=== PATIENT | female | born 1975 | race Caucasian/White ===

== ENCOUNTER 2021-11-23 13:05 | Emergency (ER) | payer BC, SELFPAY ==
[2021-11-23 13:08] VITALS: BP 153/93; PULSE 107; RESP 20; TEMP 37.2; O2SAT 100
--- NOTE | 2021-11-23 13:22 | ED.FEMALEGU ---
HPI - Female Genitourinary General Chief complaint: Urogenital-Female Stated complaint: Urinary Problem Time Seen by Provider: 11/23/21 13:22 Source: patient, RN notes reviewed and old records reviewed Mode of arrival: ambulatory Limitations: no limitations History of Present Illness HPI Narrative: 46-year-old female who presents to [facility] care with complaints of urinary frequency. urgency and pelvic pressure radiating to right lower back since the 20 of November. Patient states that she saw a urologist for her frequent UTI and was last treated with Augmentin for e-coli in her urine about 1 1/2 months ago. Patient states some slight itching in perineal area denies any vaginal drainage or any concern for exposure to STD's. Patient reports that she had recent abdominal CT scan and she has been referred to her [facility] also for follow up. MD elicited complaint: dysuria Related Data Home Medications Medication Instructions Recorded Confirmed Bacillus coagulans [Probiotic (B. 1 tablet PO .qd 05/22/19 11/23/21 coagulans)] amitriptyline 25 mg tablet 25 mg PO ONCE 05/22/19 11/23/21 beclomethasone dipropionate 40 2 inhalation INHALATION Q12H 05/22/19 11/23/21 mcg/actuation HFA breath activated aerosol cetirizine 10 mg tablet 10 mg PO DAILY 05/22/19 11/23/21 cholecalciferol (vitamin D3) 10 400 unit PO DAILY 05/22/19 11/23/21 mcg (400 unit) capsule fluticasone propionate 50 2 spray NASAL DAILY 05/22/19 11/23/21 mcg/actuation nasal spray,suspension multivitamin 1 tablet PO DAILY 05/22/19 11/23/21 omega-3 fatty acids 1,000 mg 1,000 mg PO DAILY 05/22/19 11/23/21 capsule amlodipine 5 mg PO DAILY 11/23/21 11/23/21 famotidine 10 mg PO DAILY 11/23/21 11/23/21 norethindrone acetate 5 mg PO DAILY 11/23/21 11/23/21 pantoprazole 40 mg PO DAILY 11/23/21 11/23/21 Allergies Allergy/AdvReac Type Severity Reaction Status Date / Time erythromycin base Allergy Unknown Diarrhea Verified 01/29/21 10:05 NSAIDS (Non-Steroidal AdvReac Gastrointestinal Verified 11/23/21 13:22 Anti-Inflamma Upset Review of Systems Review of Systems: CONSTITUTIONAL: Denies fever, chills, or sweats. EYES: Denies visual changes, redness, or discharge. ENT: Denies rhinorrhea, congestion, sore throat, or otalgia. CARDIOVASCULAR: Denies chest pain, palpitations, or edema. RESPIRATORY: Denies cough or dyspnea. GASTROINTESTINAL: Positive for midright abdominal discomfort radiating to right back,pelvic pressure, no nausea, vomiting, or diarrhea. GENITOURINARY: Positive for dysuria or hematuria. SKIN: Denies rash or itching. MUSCULOSKELETAL: right sided lower back pain,no joint pain, or myalgia. NEUROLOGIC: Denies headache, numbness, or weakness. PSYCHIATRIC: Denies anxiety or depression. All systems reviewed & are unremarkable except as noted in HPI and below PMFSH Past Medical History Medical History Arthritis Asthma Degenerative joint disease of thoracic spine Fibromyalgia GERD (gastroesophageal reflux disease) IBS (irritable bowel syndrome) Inflammatory arthritis Surgical History Surgical History H/O tubal ligation History of cholecystectomy Family History Family History Mother Diabetes mellitus Heart disease Father Asthma Emphysema of lung Grandparent Diabetes mellitus Heart disease Throat cancer Sibling Fibromyalgia Diabetes mellitus Multiple sclerosis Social History Social History Smoking status: Never smoker Alcohol intake: never Comments At time of signature, agree with nursing past medical, surgical, social and family history. There is no relevant family history pertinent to the presenting complaint Exam Narrative: GENERAL: Well-appearing, well-nourished, and in no acute distress. HEAD: Normoc
== END 2021-11-23 13:50 | disposition home or self-care (01) ==
PROVIDERS: Emergency Provider Registered Nurse
DX: N39.0 Urinary tract infection, site not specified (principal); M19.90 Unspecified osteoarthritis, unspecified site; J45.909 Unspecified asthma, uncomplicated; M79.7 Fibromyalgia; K21.9 Gastro-esophageal reflux disease without esophagitis; M06.9 Rheumatoid arthritis, unspecified
CPT/HCPCS: 81003; 87077; 87086; 87186; 99213; G0463

== ENCOUNTER 2022-02-06 16:48 | Emergency (ER) | payer BC, SELFPAY ==
[2022-02-06 16:54] VITALS: BP 158/92; PULSE 111; RESP 18; TEMP 36.9; O2SAT 100
--- NOTE | 2022-02-06 17:00 | ED.URI ---
HPI - URI/Sore Throat General Chief Complaint: Upper Respiratory Infection Stated Complaint: Sinus Pain Time Seen by Provider: 02/06/22 17:26 Source: patient and RN notes reviewed Mode of arrival: ambulatory Limitations: no limitations History of Present Illness HPI Narrative: 46-year-old female presents concern for 1 week history of sinus pain, pressure, headache. She also reports left ear pain, nausea. Reports she has been taking her typical allergy medications without relief. She denies fever, body aches, chills, sweats. She reports she had a negative COVID test 2 days ago MD elicited complaint: nasal congestion and sinus pain Related Data Home Medications Medication Instructions Recorded Confirmed Bacillus coagulans [Probiotic (B. 1 tablet PO .qd 05/22/19 02/06/22 coagulans)] amitriptyline 25 mg tablet 25 mg PO ONCE 05/22/19 02/06/22 beclomethasone dipropionate 40 2 inhalation inhalation Q12H 05/22/19 02/06/22 mcg/actuation HFA breath activated aerosol (Qvar RediHaler) cetirizine 10 mg tablet (Zyrtec) 10 mg PO DAILY 05/22/19 02/06/22 cholecalciferol (vitamin D3) 10 400 unit PO DAILY 05/22/19 02/06/22 mcg (400 unit) capsule fluticasone propionate 50 2 spray intranasal DAILY 05/22/19 02/06/22 mcg/actuation nasal spray,suspension multivitamin 1 tablet PO DAILY 05/22/19 02/06/22 omega-3 fatty acids 1,000 mg 1,000 mg PO DAILY 05/22/19 02/06/22 capsule (Fish Oil Concentrate) amlodipine 5 mg tablet 5 mg PO DAILY 11/23/21 02/06/22 famotidine 10 mg tablet 10 mg PO DAILY 11/23/21 02/06/22 norethindrone acetate 5 mg tablet 5 mg PO DAILY 11/23/21 02/06/22 pantoprazole 40 mg tablet,delayed 40 mg PO DAILY 11/23/21 02/06/22 release Allergies Allergy/AdvReac Type Severity Reaction Status Date / Time erythromycin base Allergy Unknown Diarrhea Verified 01/29/21 10:05 NSAIDS (Non-Steroidal AdvReac Gastrointestinal Verified 11/23/21 13:22 Anti-Inflamma Upset Review of Systems Review of Systems: CONSTITUTIONAL: Denies malaise, chills, sweats, or fever. EYES: Denies visual changes, redness, or discharge. ENT: Reports rhinorrhea, congestion, sinus pain, otalgia. Denies sore throat. CARDIOVASCULAR: Denies chest pain, palpitations, or edema. RESPIRATORY: Denies cough. Denies dyspnea. GASTROINTESTINAL: Denies abdominal pain, vomiting, diarrhea. Reports nausea SKIN: Denies rash or itching. MUSCULOSKELETAL: Denies myalgia. NEUROLOGIC: Reports headache. All systems reviewed & are unremarkable except as noted in HPI and below PMFSH Past Medical History Medical History Arthritis Asthma Degenerative joint disease of thoracic spine Fibromyalgia GERD (gastroesophageal reflux disease) IBS (irritable bowel syndrome) Inflammatory arthritis Surgical History Surgical History H/O tubal ligation History of cholecystectomy Family History Family History Mother Diabetes mellitus Heart disease Father Asthma Emphysema of lung Grandparent Diabetes mellitus Heart disease Throat cancer Sibling Fibromyalgia Diabetes mellitus Multiple sclerosis Social History Social History Smoking status: Never smoker Alcohol intake: never Comments At time of signature, agree with nursing past medical, surgical, social and family history. There is no relevant family history pertinent to the presenting complaint Exam Narrative: GENERAL: Well-appearing, well-nourished, and in no acute distress. HEAD: Normocephalic EYES: PERRLA, conjunctivae clear ENT: Nares clear, turbinates edematous and erythematous, sinus tenderness mucous membranes moist. TM pearly toribio with dull light reflex bilaterally; no tragal tenderness. Oropharynx not erythematous without lesions. Tonsils not enlarged and without
== END 2022-02-06 17:40 | disposition home or self-care (01) ==
PROVIDERS: Emergency Provider Nurse Practitioner
DX: J01.90 Acute sinusitis, unspecified (principal); M79.7 Fibromyalgia; K21.9 Gastro-esophageal reflux disease without esophagitis; M13.80 Other specified arthritis, unspecified site; M47.814 Spondylosis without myelopathy or radiculopathy, thoracic region; J45.909 Unspecified asthma, uncomplicated
CPT/HCPCS: 99213; G0463

== ENCOUNTER 2022-06-24 12:50 | Emergency (ER) | payer BC, SELFPAY ==
[2022-06-24 13:28] VITALS: BP 127/78; PULSE 95; RESP 18; TEMP 37.1; O2SAT 100
--- NOTE | 2022-06-24 13:44 | ED.URI ---
HPI - URI/Sore Throat General Chief Complaint: Upper Respiratory Infection Stated Complaint: Cough Time Seen by Provider: 06/24/22 13:45 Source: patient and RN notes reviewed Mode of arrival: ambulatory Limitations: no limitations History of Present Illness HPI Narrative: 47-year-old female presenting for complaint of cough, chest congestion, sinus congestion, headache and right ear pain for 2 days. Cough is nonproductive, feels like she has rattling in the chest. Endorses a history of asthma. Last had COVID 03/2022. She had a negative home COVID test yesterday. She is taking Mucinex for symptoms. Endorses son is sick but tested negative for COVID, flu, and strep. with a cough. Denies shortness of breath, wheezing, nausea, vomiting, diarrhea, fevers or chills. MD elicited complaint: cough Related Data Home Medications Medication Instructions Recorded Confirmed amitriptyline 25 mg tablet 25 mg PO ONCE 05/22/19 06/24/22 beclomethasone dipropionate 40 2 inhalation inhalation Q12H 05/22/19 06/24/22 mcg/actuation HFA breath activated aerosol (Qvar RediHaler) cetirizine 10 mg tablet (Zyrtec) 10 mg PO DAILY 05/22/19 06/24/22 cholecalciferol (vitamin D3) 10 400 unit PO DAILY 05/22/19 06/24/22 mcg (400 unit) capsule multivitamin 1 tablet PO DAILY 05/22/19 06/24/22 omega-3 fatty acids 1,000 mg 1,000 mg PO DAILY 05/22/19 06/24/22 capsule (Fish Oil Concentrate) amlodipine 5 mg tablet 5 mg PO DAILY 11/23/21 06/24/22 famotidine 10 mg tablet 10 mg PO DAILY 11/23/21 06/24/22 norethindrone acetate 5 mg tablet 5 mg PO DAILY 11/23/21 06/24/22 pantoprazole 40 mg tablet,delayed 40 mg PO DAILY 11/23/21 06/24/22 release amlodipine 5 mg tablet 5 mg DAILY 06/24/22 06/24/22 Allergies Allergy/AdvReac Type Severity Reaction Status Date / Time erythromycin base Allergy Unknown Diarrhea Verified 06/24/22 13:35 NSAIDS (Non-Steroidal AdvReac Gastrointestinal Verified 06/24/22 13:35 Anti-Inflamma Upset Review of Systems Review of Systems: Per HPI [facility] Past Medical History Medical History Arthritis Asthma Degenerative joint disease of thoracic spine Fibromyalgia GERD (gastroesophageal reflux disease) IBS (irritable bowel syndrome) Inflammatory arthritis Surgical History Surgical History H/O tubal ligation History of cholecystectomy Family History Family History Mother Diabetes mellitus Heart disease Father Asthma Emphysema of lung Grandparent Diabetes mellitus Heart disease Throat cancer Sibling Fibromyalgia Diabetes mellitus Multiple sclerosis Social History Social History Smoking status: Never smoker Alcohol intake: never Exam Narrative: GENERAL: Ill-appearing, nontoxic EYES: PERRLA, conjunctivae clear ENT: Mucous membranes moist. TMs pearly toribio with dull light reflex bilaterally; no tragal tenderness. Oropharynx erythematous without lesions or exudate CHEST: Clear to auscultation, breath sounds equal. No wheezing, rhonchi, rales, or stridor. No respiratory distress, speaks in full sentences. HEART: Regular rate and rhythm. No murmur heard. SKIN: Warm, dry, no rash. NEURO: Alert and oriented x3. PSYCH: Normal mood and affect Course Course Emergency Course: Patient is aware of diagnosis, understands and agrees to treatment plan. Anticipatory guidance given. Patient agrees to follow-up as directed and is aware of reasons to seek care at the emergency department. Portions of this record may have been created with voice recognition software Level of Care: Express Care Visit Vital Signs Vital signs: Vital Signs Temperature 98.8 F 06/24/22 13:28 Pulse Rate 95 06/24/22 13:28 Respiratory Rate 18 06/24/22 13:28 Blood Pressure 127/78
== END 2022-06-24 14:28 | disposition home or self-care (01) ==
PROVIDERS: Emergency Provider Nurse Practitioner Family; PCP Physician Assistant
DX: J10.1 Influenza due to other identified influenza virus with other respiratory manifestations (principal); J45.909 Unspecified asthma, uncomplicated; M47.814 Spondylosis without myelopathy or radiculopathy, thoracic region; M79.7 Fibromyalgia; K21.9 Gastro-esophageal reflux disease without esophagitis; M13.80 Other specified arthritis, unspecified site
CPT/HCPCS: 87804; 99213; G0463

== ENCOUNTER 2023-08-19 18:52 | Emergency (ER) | payer BC, SELFPAY ==
[2023-08-19 18:58] VITALS: BP 148/84; PULSE 81; RESP 20; TEMP 36.9; O2SAT 100
--- NOTE | 2023-08-19 19:05 | ED.GENADULT ---
HPI - General Adult General Chief complaint: Upper Respiratory Infection Stated complaint: poss sinus infection Time Seen by Provider: 08/19/23 19:05 Source: patient, RN notes reviewed and old records reviewed Mode of arrival: ambulatory Limitations: no limitations History of Present Illness HPI narrative: 48-year-old female presents to the [facility] with concerns for a possible sinus infection. Patient reports symptoms for 6 days. Took leftover amoxicillin for 3 days, allergy medication, Flonase Onset (ago): day(s) (6) Related Data Home Medications Medication Instructions Recorded Confirmed amitriptyline 25 mg tablet 25 mg PO ONCE 05/22/19 08/19/23 cholecalciferol (vitamin D3) 10 400 unit PO DAILY 05/22/19 08/19/23 mcg (400 unit) capsule multivitamin 1 tablet PO DAILY 05/22/19 08/19/23 amlodipine 5 mg tablet 5 mg PO DAILY 11/23/21 08/19/23 norethindrone acetate 5 mg tablet 5 mg PO DAILY 11/23/21 08/19/23 pantoprazole 40 mg tablet,delayed 40 mg PO DAILY 11/23/21 08/19/23 release Allergies Allergy/AdvReac Type Severity Reaction Status Date / Time erythromycin base Allergy Unknown Diarrhea Verified 08/19/23 19:21 NSAIDS (Non-Steroidal AdvReac Gastrointestinal Verified 08/19/23 19:21 Anti-Inflamma Upset Review of Systems Review of Systems: All systems reviewed & are unremarkable except as noted in HPI and below Constitutional: Constitutional: Reports no additional constitutional complaints Eyes: Eyes: Reports no additional eye complaints ENT: Reports as per HPI, Reports nasal congestion and Reports sinus pressure Cardiovascular: Cardiovascular: Reports no additional cardiovascular complaints, Denies chest pain and Denies dyspnea Respiratory: Respiratory: Reports no additional respiratory complaints, Denies chest congestion, Denies cough and Denies dyspnea Gastrointestinal: Gastrointestinal: Reports no additional gastrointestinal complaints, Denies abdominal pain, Denies nausea and Denies vomiting Musculoskeletal: Musculoskeletal: Reports no additional musculoskeletal complaints Integumentary/Breasts: Skin/Breast: Reports system reviewed and no additional complaints, except as docu Neurologic: Reports system reviewed and no additional complaints, except as documented Psychiatric: Psychiatric: Reports no additional psychiatric complaints Allergic/Immunologic: Allergic/Immunologic: Reports no additional allergic/immunologic complaints PMFSH Past Medical History Medical History (Updated 08/19/23 @ 19:37 by Yara Koo APRN) Arthritis Asthma Degenerative joint disease of thoracic spine Fibromyalgia GERD (gastroesophageal reflux disease) IBS (irritable bowel syndrome) Inflammatory arthritis Myalgia Surgical History Surgical History H/O tubal ligation History of cholecystectomy Family History Family History Mother Diabetes mellitus Heart disease Father Asthma Emphysema of lung Grandparent Diabetes mellitus Heart disease Throat cancer Sibling Fibromyalgia Diabetes mellitus Multiple sclerosis Social History Social History Smoking status: Never smoker Alcohol intake: never Substance use: never Substance use type: does not use Do You Feel Safe in your Home?: Yes Lack of Transportation: No Lack of Food: Never True Current Housing: I Have Housing Concerned About Future Housing: No Difficulty Paying Gas/Electric Bills: No Difficulty Paying for Meds: No Currently Unemployed: No Education: Decline to Answer Difficulty w/ Childcare or Family Care: No Living arrangements: with family Occupation/Education: occupation Gender identity (if verbalized by the patient): Female Comments At the time of my signature, I reviewed and agree with the nursing past medical, surgical, social,
== END 2023-08-19 19:25 | disposition home or self-care (01) ==
PROVIDERS: Emergency Provider Nurse Practitioner; PCP Physician Assistant
DX: J32.9 Chronic sinusitis, unspecified (principal); M19.90 Unspecified osteoarthritis, unspecified site; J45.909 Unspecified asthma, uncomplicated; M79.7 Fibromyalgia; K21.9 Gastro-esophageal reflux disease without esophagitis; M47.814 Spondylosis without myelopathy or radiculopathy, thoracic region
CPT/HCPCS: 99213; G0463